=== PATIENT | male | born 1945 | race Caucasian/White ===

== ENCOUNTER 2023-08-27 11:00 | Outpatient (RCR) | payer MEDICARE, SELFPAY ==
[2023-08-08 10:50] LABS: Glucose - Point of Care 180 mg/dl (70-99)
[2023-08-08 11:48] LABS: Glucose - Point of Care 85 mg/dl (70-99)
[2023-08-10 10:50] LABS: Glucose - Point of Care 208 mg/dl (70-99)
[2023-08-10 11:49] LABS: Glucose - Point of Care 109 mg/dl (70-99)
[2023-08-13 10:49] LABS: Glucose - Point of Care 205 mg/dl (70-99)
[2023-08-13 11:48] LABS: Glucose - Point of Care 82 mg/dl (70-99)
[2023-08-15 10:53] LABS: Glucose - Point of Care 206 mg/dl (70-99)
[2023-08-15 11:54] LABS: Glucose - Point of Care 109 mg/dl (70-99)
[2023-08-17 11:13] LABS: Glucose - Point of Care 171 mg/dl (70-99)
[2023-08-17 12:13] LABS: Glucose - Point of Care 73 mg/dl (70-99)
[2023-08-20 11:10] LABS: Glucose - Point of Care 235 mg/dl (70-99)
[2023-08-20 11:58] LABS: Glucose - Point of Care 138 mg/dl (70-99)
[2023-08-22 10:50] LABS: Glucose - Point of Care 200 mg/dl (70-99)
[2023-08-22 11:53] LABS: Glucose - Point of Care 90 mg/dl (70-99)
== END 2023-08-27 23:59 | disposition home or self-care (01) ==
LOC: CRHB 11:00
PROVIDERS: ATTENDING PHYSICIAN Internal Medicine Cardiovascular Disease
DX: I25.10 Atherosclerotic heart disease of native coronary artery without angina pectoris (principal); Z95.1 Presence of aortocoronary bypass graft
CPT/HCPCS: 82962; G0422; G0423

== ENCOUNTER 2024-01-16 06:13 | Day surgery (SDC) | payer MEDICARE, SELFPAY ==
[2024-01-16 09:42] VITALS: BMI 24.8
[2024-01-16 09:44] VITALS: BMI 24.8
[2024-01-16 09:50] VITALS: BP 163/65
[2024-01-16 09:50] LABS: Glucose - Point of Care 124 mg/dl (70-99)
[2024-01-16 11:51] VITALS: BP 133/58
[2024-01-16 12:00] VITALS: BP 139/64
[2024-01-16 12:15] VITALS: BP 149/88
[2024-01-16 12:30] VITALS: BP 162/64
[2024-01-16 12:45] VITALS: BP 153/55
== END 2024-01-16 13:04 | disposition home or self-care (01) ==
LOC: SDS 06:13
PROVIDERS: ATTENDING PHYSICIAN Internal Medicine Gastroenterology
DX: K63.5 Polyp of colon (principal); K57.30 Diverticulosis of large intestine without perforation or abscess without bleeding; K64.8 Other hemorrhoids; D50.9 Iron deficiency anemia, unspecified; K22.89 Other specified disease of esophagus; K44.9 Diaphragmatic hernia without obstruction or gangrene; K31.89 Other diseases of stomach and duodenum; D72.820 Lymphocytosis (symptomatic)
CPT/HCPCS: 45380; 43239; 88305; 82962; 88342